=== PATIENT | female | born 2000 | race Caucasian/White ===

== ENCOUNTER → 2022-03-30 06:24 | Outpatient (CLI) | payer BC, SELFPAY ==
[2022-03-30 18:32] LABS: Basophils # 0.1 K/mm3 (0-0.2); Basophils % 1.5 % (0.1-2.0); Eosinophils # 0.2 K/mm3 (0.0-0.4); Eosinophils % 4.8 % (0.1-12.0); Hematocrit 41.8 % (37.0-47.0); Hemoglobin 13.4 g/dL (12.2-16.2); Lymphocytes # 0.7 K/mm3 (0.7-4.5); Lymphocytes % 16.2 % (10-50); Mean Corpuscular Hemoglobin 29.6 pg (27.0-31.2); Mean Corpuscular Volume 92.7 fl (81-99); Mean Platelet Volume 9.8 fl (7.4-10.4); Monocytes # 0.4 K/mm3 (0.1-1.0); Monocytes % 10.9 % (1.7-9.3); Neutrophils # 2.7 K/mm3 (1.8-7.8); Neutrophils % 66.6 % (37.0-80.0); Platelet Count 207 K/mm3 (142-424); Red Blood Count 4.51 M/mm3 (4.20-5.40)
== END ==
PROVIDERS: PCP Nurse Practitioner; Visit Provider Nurse Practitioner
DX: K52.9 Noninfective gastroenteritis and colitis, unspecified (principal); Z20.822 Contact with and (suspected) exposure to COVID-19
CPT/HCPCS: 85025; C9803; U0003; U0005

== ENCOUNTER 2022-07-22 11:00 | Emergency (ER) | payer BC, SELFPAY ==
--- NOTE | 2022-07-22 13:15 | EXP.UTC ---
Discharge Plan Disposition Patient Disposition: Home, Self-Care Condition: Good Prescriptions Prescriptions: New azithromycin [Zithromax] 250 mg tablet 250 mg PO UD DOSE PK Qty: 6 0RF Rx Instructions: Take two (2) tablets today, then one (1) tablet days #2 thru #5 methylprednisolone 4 mg Tablets,Dose Pack 4 mg PO DIRECTED Qty: 21 0RF [id number] [Bromfed DM] 2-30-10 mg/5 mL Syrup 5 ml PO Q6H PRN (Reason: Cough) Qty: 240 0RF No Action hyoscyamine sulfate 0.125 mg tablet 0.125 mg PO Q4H PRN (Reason: diarrhea or abdominal cramping) Qty: 30 0RF ondansetron HCl 4 mg tablet 4 mg PO Q8H PRN (Reason: nausea and vomiting) Qty: 20 0RF Referrals Follow up/Referrals: Provider,Referral, MD [Primary Care Provider] - See instructions Activity Restrictions/Add. Instructions Additional Instructions/Restrictions: Drink plenty of fluids. Take tylenol or ibuprofen for pain or fever. Take the medications as directed. Follow up with your regular doctor. GO TO THE ER FOR ANY WORSENING SYMPTOMS Clinical Impressions Clinical Impression: Pharyngitis, Bronchitis, Acute viral syndrome Stand Alone Forms Stand Alone Forms: Work/School Release Instructions Patient Instructions: DI for Pharyngitis/Tonsillopharyngitis -- Adult, DI for Acute Bronchitis, DI for Viral Syndrome Discharge ED Provider: Michel Tee [facility] General Stated complaint: congestion cant talk Time Seen by Provider: 07/22/22 13:15 History of Present Illness Provider Complaint: She states that for the past 3 days she has had body aches, chills, cough, chest congestion, fever and malaise. She also has a sore throat. Related Data Previous Rx's Medication Instructions Recorded hyoscyamine sulfate 0.125 mg tablet 0.125 mg PO Q4H PRN diarrhea or 03/30/22 abdominal cramping #30 tabs ondansetron HCl 4 mg tablet 4 mg PO Q8H PRN nausea and 03/30/22 vomiting #20 tabs azithromycin 250 mg tablet 250 mg PO UD DOSE PK #6 tabs 07/22/22 (Zithromax) iuoksukjbzwcady-oibubixasdszacj-OU 5 ml PO Q6H PRN Cough #240 mL 07/22/22 2 mg-30 mg-10 mg/5 mL oral syrup (Bromfed DM) methylprednisolone 4 mg tablets in 4 mg PO DIRECTED #21 tabs 07/22/22 a dose pack Allergies Allergy/AdvReac Type Severity Reaction Status Date / Time Penicillins AdvReac Verified 07/22/22 13:37 PFSH PFSH Disclaimer: The information contained in this section may have been updated after the patient was seen, as this information can be updated by other users. Social History Smoking Status: Never smoker alcohol intake: former substance use type: denies use current occupational status: employed Travel in the last 8 weeks: Inside the [place] ROS Obtained: Yes All systems reviewed & no additional complaints except as documented Constitutional Constitutional: Reports chills and Reports fever(s) Eyes Eyes: Denies eye discharge ENT Ears, Nose, Mouth, and Throat: Reports as per HPI Cardiovascular Cardiovascular: Denies chest pain Respiratory Respiratory: Denies chest congestion and Reports cough Gastrointestinal Gastrointestingal: Reports nausea; Denies abdominal pain, constipation, cramping, diarrhea or vomiting Musculoskeletal Musculoskeletal: Denies arthralgias Integumentary/Breasts Skin/Breast: Denies rash Neurologic Neurologic: Denies paresthesias Physical Exam General General appearance: alert and in no apparent distress Head Head exam: atraumatic, normocephalic and normal inspection Eye Eye exam: Present normal appearance, PERRL and EOMI ENT ENT exam: Present mucous membranes moist and normal external ear exam Expanded ENT Exam TM/Canal exam: Bilateral TM: erythema and bulging Nose exam: Absent sinus tenderness Mouth exam: Present normal external inspection; Absent drooling Teeth exam: Present normal inspection Throat exam: Present
[2022-07-22 13:31] LABS: UTC Strep Screen (Rapid) Negative (Negative)
[2022-07-22 13:32] LABS: UTC Influenza A Antigen Negative (Negative); UTC Influenza B Antigen Negative (Negative)
[2022-07-22 13:33] VITALS: BP 149/83; PULSE 105; RESP 16; TEMP 37.4; O2SAT 98; BMI 21.9
[2022-07-22 14:04] VITALS: BP 143/83; PULSE 105; RESP 16; TEMP 37.4
== END 2022-07-22 14:05 | disposition home or self-care (01) ==
PROVIDERS: Emergency Provider Nurse Practitioner Family
DX: J02.9 Acute pharyngitis, unspecified (principal); R50.9 Fever, unspecified; R11.2 Nausea with vomiting, unspecified; R05.9 Cough, unspecified; R09.81 Nasal congestion; M79.10 Myalgia, unspecified site; R53.81 Other malaise; Z79.899 Other long term (current) drug therapy; Z88.0 Allergy status to penicillin
CPT/HCPCS: 87804; 87880; 99213; G0463

== ENCOUNTER 2022-09-26 12:33 | Emergency (ER) | payer OTHER, BC, SELFPAY ==
[2022-09-26 12:34] VITALS: BP 130/84; PULSE 103; RESP 17; TEMP 36.7; O2SAT 100; BMI 21.9
--- NOTE | 2022-09-26 12:56 | CT_ITS ---
FINAL REPORT TECHNIQUE: Axial CT images were performed through the head. Coronal reformatted images were submitted. This study was performed with techniques to keep radiation doses as low as reasonably achievable (ALARA). Individualized dose reduction techniques using automated exposure control or adjustment of mA and/or kV according to the patient's size were employed. CLINICAL HISTORY: head injury FINDINGS: The ventricles are normal in size. There is no evidence of hemorrhage. There is no mass or edema identified. There is no abnormal extra-axial fluid seen. The sinuses are well aerated. There is no acute osseous abnormality. IMPRESSION: No acute intracranial process. Reviewed, Interpreted and Dictated by Todd Jacinto MD Transcribed by Parish Benitez Authenticated and [facility]
--- NOTE | 2022-09-26 13:28 | PC.NURSE ---
ROUNDED ON PT AT THIS TIME, C/O HEADACHE AND INCREASED NAUSEA
[2022-09-26 13:35] LABS: Urine Pregnancy, HCG Qual. Negative (Negative)
--- NOTE | 2022-09-26 13:37 | PC.NURSE ---
PT TO CT AT THIS TIME
--- NOTE | 2022-09-26 13:56 | HMH.EDGENADL ---
Discharge Plan Disposition Patient Disposition: Home, Self-Care Condition: Good Prescriptions Prescriptions: New ondansetron 4 mg tablet,disintegrating 4 mg PO Q8H PRN (Reason: nausea and vomiting) Qty: 10 0RF No Action hyoscyamine sulfate 0.125 mg tablet 0.125 mg PO Q4H PRN (Reason: diarrhea or abdominal cramping) Qty: 30 0RF ondansetron HCl 4 mg tablet 4 mg PO Q8H PRN (Reason: nausea and vomiting) Qty: 20 0RF azithromycin [Zithromax] 250 mg tablet 250 mg PO UD DOSE PK Qty: 6 0RF Rx Instructions: Take two (2) tablets today, then one (1) tablet days #2 thru #5 methylprednisolone 4 mg Tablets,Dose Pack 4 mg PO DIRECTED Qty: 21 0RF [id number]-nyawvadwj-MU [Bromfed DM] 2-30-10 mg/5 mL Syrup 5 ml PO Q6H PRN (Reason: Cough) Qty: 240 0RF Referrals Follow up/Referrals: Provider,Referral, MD [Primary Care Provider] - See instructions Activity Restrictions/Add. Instructions Additional Instructions/Restrictions: Tylenol for pain. Zofran as needed for nausea. Additional instructions for HEAD INJURY: See your physician as soon as possible for further care. Return immediately if severe headache, vomiting, problems with vision or speech, numbness or weakness of the extremities, or severe neck pain. Clinical Impressions Clinical Impression: Concussion Stand Alone Forms Stand Alone Forms: Work/School Release Instructions Patient Instructions: DI for Concussion Discharge ED Provider: Tobi Parada General Adult HPI General Chief complaint: Head Injury Stated complaint: 09/26 0600 AO Hit head on machinery Time Seen by Provider: 09/26/22 13:50 Mode of Arrival: Ambulatory Limitations: No Limitations Description of Symptoms (Recalled from ER Triage Doc. by RN): PT REPORTS RAISING UP AT WORK AND HIT HER HEAD ON METAL BAR. DENIES LOC, NO HEADACHE, NO VISUAL DISTURBANCE. PT AMBULATED TO ED. History of Present Illness HPI narrative: Patient states that about 7:30 AM at work she hit her frontal scalp area on about a 20 pound metal part knocking it off of a cart. since then she complains of a pressure sensation in her forehead along with nausea. She says that afterwards she also had difficulty understanding what people were telling her. No vomiting. Denies visual disturbance. Denies neck pain or injury. Denies numbness or weakness of extremities. Had she has had Tylenol for discomfort and current pain is 3/10. She had Zofran for nausea with improvement. Related Data Previous Rx's Medication Instructions Recorded hyoscyamine sulfate 0.125 mg tablet 0.125 mg PO Q4H PRN diarrhea or 03/30/22 abdominal cramping #30 tabs ondansetron HCl 4 mg tablet 4 mg PO Q8H PRN nausea and 03/30/22 vomiting #20 tabs azithromycin 250 mg tablet 250 mg PO UD DOSE PK #6 tabs 07/22/22 (Zithromax) laoyuxsimokmhmw-syojsplgukdlqyf-JD 5 ml PO Q6H PRN Cough #240 mL 07/22/22 2 mg-30 mg-10 mg/5 mL oral syrup (Bromfed DM) methylprednisolone 4 mg tablets in 4 mg PO DIRECTED #21 tabs 07/22/22 a dose pack ondansetron 4 mg disintegrating 4 mg PO Q8H PRN nausea and 09/26/22 tablet vomiting #10 tabs Allergies Allergy/AdvReac Type Severity Reaction Status Date / Time Penicillins AdvReac Verified 07/22/22 13:37 [facility] Disclaimer: The information contained in this section may have been updated after the patient was seen, as this information can be updated by other users. Social History Smoking Status: Never smoker alcohol intake: former substance use type: denies use current occupational status: employed Travel in the last 8 weeks: Inside the [place] ROS Obtained: Yes Systems reviewed as appropriate & no additional complaints except as documented Constitutional Constitutional: Denies weakness Eyes Eyes: Denies change in vision ENT Ears, Nose, Mouth, and Throat: Denies neck pain Gastrointestinal Gastr
--- NOTE | 2022-09-26 14:08 | PC.NURSE ---
Rounded on patient and her family. No needs at this time.
[2022-09-26 14:20] VITALS: BP 119/79; PULSE 73; RESP 17; TEMP 36.5; O2SAT 99
== END 2022-09-26 14:22 | disposition home or self-care (01) ==
PROVIDERS: Emergency Provider Emergency Medicine
DX: S06.0X0A Concussion without loss of consciousness, initial encounter (principal); W22.8XXA Striking against or struck by other objects, initial encounter; Y99.0 Civilian activity done for income or pay
CPT/HCPCS: 70450; 81025; 99284

== ENCOUNTER 2024-01-02 10:15 | Outpatient (CLI) | payer BC, SELFPAY ==
[2024-01-02 17:45] LABS: Adenovirus,PCR Not Detected (NotDetected); Bordetella Pertussis Not Detected (NotDetected); Chlamydophila Pneumoniae, PCR Not Detected (NotDetected); Coronavirus 19, PCR Not Detected (NotDetected); Coronavirus 229E Not Detected (NotDetected); Coronavirus NL63 Not Detected (NotDetected); Coronavirus OC43 Not Detected (NotDetected); Coronovirus HKU1,PCR Not Detected (NotDetected); Human Metapneumovirus Not Detected (NotDetected); Influenza A, PCR Not Detected (NotDetected); Influenza AH1, 2009 Not Detected (NotDetected); Influenza AH1, PCR Not Detected (NotDetected); Influenza AH3,PCR Not Detected (NotDetected); Influenza B, PCR Not Detected (NotDetected); Mycoplasma Pneumoniae, PCR Not Detected (NotDetected); Parainfluenza 1, PCR Not Detected (NotDetected); Parainfluenza 2, PCR Not Detected (NotDetected); Parainfluenza 3, PCR Not Detected (NotDetected); Parainfluenza 4, PCR Not Detected (NotDetected); Respiratory Syncytial Virus Not Detected (NotDetected)
[2024-01-02 21:59] LABS: Rhinovirus/Enterovirus Detected (NotDetected)
== END 2024-01-02 23:59 | disposition home or self-care (01) ==
LOC: LAB.DROPOF 01-04 10:18
PROVIDERS: PCP Nurse Practitioner; Visit Provider Nurse Practitioner
DX: J01.00 Acute maxillary sinusitis, unspecified (principal); J30.9 Allergic rhinitis, unspecified; B97.19 Other enterovirus as the cause of diseases classified elsewhere
CPT/HCPCS: 87581; 87632; 87635; 87798

== ENCOUNTER 2024-08-05 19:12 | Outpatient (CLI) | payer BC, SELFPAY ==
[2024-08-05 19:27] LABS: Microscopic, Urine URINE MICROSCOPIC (MICROSCOPIC)
[2024-08-05 19:33] LABS: Appearance,Urine CLEAR (Clear); Bilirubin,Urine Negative (Negative); Blood, Urine 2+ (Negative); Color,Urine YELLOW (Yellow); Glucose,Urine (UA) Negative (Negative); Ketones,Urine Negative (Negative); Leukocyte Esterase,Urine 1+ (Negative); Nitrate,Urine POSITIVE (Negative); PH,Urine 6.5 (5.0-8.5); Protein,Urine TRACE (Negative); Specific Gravity, Urine 1.025 (1.005-1.030); Urobilinogen,Urine 0.2 EU/dl (0.2)
[2024-08-05 20:34] LABS: Bacteria,Urine 4+ /lpf; RBC,Urine 50-100 #/hpf (0-3); Squamous Epithelial Cell,Urine 20-50 #/hpf (0-5); WBC,Urine TNTC #/hpf (0-3)
[2024-08-05 20:35] LABS: Mucus,Urine 1+ /lpf
== END 2024-08-05 23:59 | disposition home or self-care (01) ==
LOC: LAB.DROPOF 19:15
PROVIDERS: PCP Family Medicine; Visit Provider Family Medicine
DX: N39.0 Urinary tract infection, site not specified (principal)
CPT/HCPCS: 81001; 87086; 87088; 87186

== ENCOUNTER 2025-07-07 12:00 | Outpatient (CLI) | payer BC, SELFPAY ==
[2025-07-07 14:55] LABS: Coronavirus 19, PCR Not Detected (NotDetected); Influenza B, PCR Not Detected (NotDetected)
[2025-07-07 16:28] LABS: Influenza A, PCR Detected (NotDetected)
--- OUTSIDE RECORDS SUMMARY | 2025-07-08 15:14 | XMS_ITS ---
Author Organization Unknown ENCOUNTERS Encounter Performer Location Date Diagnosis Diagnosis Status Emergency Tobi Parada [address] [place] [address] [id number] TOO Emergency Michel Tee [address] [place] [address] [id number] TOO *Note: Encounters from your own facility or health system may be excluded. Allergies, Adverse Reactions, Alerts Allergen Type Severity Identification Date Penicillins drug allergy 0 [id number] Medications Name Date Quantity Days Supplied GPI Number
--- OUTSIDE RECORDS SUMMARY | 2025-07-08 15:14 | XMS_ITS | Patient Health Record ---
[facility] Address [address] [place] [id number] Support Name Relationship Address Phone Aleena Thompson Guarantor Unknown [phone] Allergies Allergen (clinical drug ingredient) Drug/Non Drug Allergy documented on EMR Reaction Allergy Type Onset Date Status amoxicillin Amoxicillin Unknown Drug Allergy Act diya erythromycin Erythromycin Unknown Drug Allergy A ctive Penicillin Unknown Drug Allergy Active Reason For Referral No Information Medications Medication SIG (Take, Route, Frequency, Duration) Notes Start Date End Date Status Zithromax 500 MG 2 tabs day 1, 1 tab day 2-5 orally once a day 02/13/2011 Active Ciprodex 0.3-0.1 % 4 gtt rt ear 2 times a day 02/13/2011 Active Claritin 5 MG/5 ML 10 ML ORALLY ONCE A DAY; Duration: 30 DAY(S) *Please review and pick correct strength-formulatio n from [facility] options. If intended option is not shown, discontinue and re-order from Quick Search* Active Tylenol 325 MG 2 tab(s) orally every 4 hours; Duration: 3 day(s) Active Plan Of Treatment No Information Insurance Providers Payer Name Payer Address Payer Phone Subscriber Number Group Number Insured Name Patient Relationship to Insured Coverage Start Date Coverage End Date [employer] [address] [place] [address] [id number] FlemingAleena escalona Self - patient is the insured
== END 2025-07-07 23:59 | disposition home or self-care (01) ==
LOC: LAB.DROPOF 07-08 13:52
PROVIDERS: PCP Nurse Practitioner; Visit Provider Nurse Practitioner
DX: J06.9 Acute upper respiratory infection, unspecified (principal); R32 Unspecified urinary incontinence; R52 Pain, unspecified
CPT/HCPCS: 87086; 87636